=== PATIENT | female | born 1930 | race African-American/Black ===

== ENCOUNTER 2019-01-29 14:02 | Emergency (ER) | payer MEDICARE, BC ==
[~2019-01-29] VITALS: Ht 160 cm; Wt 52.2 kg
[~2019-01-29 14:02] MED LIST: ASPIRIN EC81 MG ORAL; ATENOLOL25 MG ORAL; BENAZEPRIL HCL10 MG ORAL; CLONIDINE HCL0.1 MG PO; DOCUSATE SODIU100 M2 ORAL; FAMOTIDINE10 MG ORAL; HYDRALAZINE HC100 MG PO; IRON325 M1 PO; NEPHROVITE1 TAB ORAL; NIFEDIPINE ER60 M2 ORAL; NIFEDIPINE PO; OMEGA 3 FISH O1 EAC1 PO; PROCRIT2000 UNIT/ SQ; QUETIAPINE FUMA25 MG ORAL; SENSIPAR30 MG ORAL; THIAMINE HCL100 MG ORAL
[2019-01-29] MEDS ORDERED: METOPROLOL TART25 MG ORAL (14:16)
[2019-01-29] MEDS ORDERED: HYDRALAZINE HCL25 M1 ORAL (14:16)
[2019-01-29] MEDS ORDERED: DAILY VITE1 EACH ORAL (14:23)
[2019-01-29] MEDS ORDERED: RENAGEL800 MG ORAL (14:23)
[2019-01-29] MEDS ORDERED: VITAMIN B-1100 MG ORAL (14:23)
[2019-01-29] MEDS ORDERED: VITAMIN D1000 UNI1 ORAL (14:23)
--- NOTE | 2019-01-29 14:25 | NUR ---
ED Nurse Note: Pt came in from home s/p laceration on upper lip, stated she "need something to replace a tetanus shot". Wound about 0.5cm length, clean and dry, no active bleeding, straight edged. Pt cleaned wound with betadine and sterile water. Pt tripped and fell this morning while going for her morning walk. Pt is allergic to Tetanus vaccine, reaction is hives. Pt has dialysis on --, shrunt on L lower arm, did not miss Dialysis. Pt did not hit her head. AOx4, BP 162/72 upon arrival, ERMD aware. Will cont to monitor.
[2019-01-29] MEDS ORDERED: CHLORHEXIDINE473 ML MM (14:33)
--- NOTE | 2019-01-29 14:36 | Emergency Room Report ---
History of Present Illness General Chief Complaint: Multiple Trauma/Fall Present Illness HPI Patient is a 88-year-old female presented after a fall from standing. Patient denies any loss of consciousness. She denies any neck or back pain. Patient reports having gone to dialysis after the fall. She reports sustaining a upper lip laceration. She denies any dental injury. Allergies: Coded Allergies: TETANUS VACCINES & TOXOID (Verified Allergy, Severe, 06/13/13) Patient History Past Medical History: see triage record, renal disease, dialysis Reviewed Nursing Documentation: PMH: Agreed; PSxH: Agreed Nursing Documentation-PMH Hx Cardiac Problems: Yes Hx Hypertension: Yes Hx Cancer: Yes - Lt Breast cancer --> Lt RM & Radiation Tx Hx Gastrointestinal Problems: Yes - GERD Hx Dialysis: Yes - M,W,F Hx Neurological Problems: Yes Hx Dizziness: Yes Review of Systems All Other Systems: negative except mentioned in HPI Physical Exam Vital Signs Date Time Temp Pulse Resp B/P (MAP) Pulse Ox O2 Delivery O2 Flow Rate FiO2 01/29/19 14:11 99.0 78 19 95 Room Air General Appearance: well appearing, no apparent distress, alert, GCS 15 Head: normocephalic, atraumatic ENT: hearing grossly normal, normal voice Neck: full range of motion, supple Respiratory: lungs clear, normal breath sounds, no respiratory distress, speaking full sentences Cardiovascular #1: normal inspection, normal peripheral pulses, regular rate, rhythm, no edema Musculoskeletal: normal inspection Neurologic: normal gait Psychiatric: mood/affect normal Skin: laceration - lip laceration less than 0.5cm Medical Decision Making Diagnostic Impression: Primary Impression: Laceration of lip ER Course Presents with lip laceration. Differential diagnosis include was not limited to head injury, syncope, fracture among others.Patient did have a benign exam. She does not appear to have any evidence of laceration requiring suturing. Patient will be left open. Patient was given prescription for chlorhexidine to rinse her laceration after eating. Patient requested tetanus immunoglobulin however this is not available and I do not think that this is currently indicated. Patient was advised to follow-up with her primary care physician if she desired a second opinion. Last Vital Signs Date Time Temp Pulse Resp B/P (MAP) Pulse Ox O2 Delivery O2 Flow Rate FiO2 01/29/19 14:28 78 19 Room Air 01/29/19 14:11 99.0 95 Status: improved Disposition: HOME, SELF-CARE Condition: Stable Scripts Chlorhexidine Gluconate (CHLORHEXIDINE GLUCONATE) 473 Ml Mouthwash 120 ML MM TWICE A DAY, #120 ML Prov: Gen Valdez MD 01/29/19 Patient Instructions: Nonsutured Laceration Care Additional Instructions: Follow up with your primary care physician for recheck of skin wound. Gen Valdez MD January 29, 2019 14:36
[2019-01-29 14:37] VITALS: BP 157/79
--- NOTE | 2019-01-29 14:37 | NUR ---
ER DISCHARGE NOTE: Patient is cleared to be discharged per ERMD, pt is aox4, on room air, with stable vital signs. pt was given dc and prescription instructions, pt was able to verbalize understanding, pt id band removed. pt is able to ambulate with steady gait. pt took all belongings.
== END 2019-01-29 14:37 | disposition home or self-care (01) ==
LOC: EMR 14:25
DX: S01.511A Laceration without foreign body of lip, initial encounter (principal); W19.XXXA Unspecified fall, initial encounter; Y92.9 Unspecified place or not applicable; I10 Essential (primary) hypertension; Z85.3 Personal history of malignant neoplasm of breast; K21.9 Gastro-esophageal reflux disease without esophagitis; Z88.7 Allergy status to serum and vaccine
CPT/HCPCS: 99281

== ENCOUNTER 2019-06-03 18:34 | Emergency (ER) | payer MEDICARE, BC ==
[~2019-06-03] VITALS: Ht 157.5 cm; Wt 49.9 kg
[~2019-06-03 18:34] MED LIST changes: +CHLORHEXIDINE473 ML MM; +DAILY VITE1 EACH ORAL; +HYDRALAZINE HCL25 M1 ORAL; +METOPROLOL TART25 MG ORAL; +RENAGEL800 MG ORAL; +VITAMIN B-1100 MG ORAL; +VITAMIN D1000 UNI1 ORAL
--- NOTE | 2019-06-03 18:55 | NUR ---
ED Nurse Note: Patient walked in to ER due to fall injury x 1; s/p fall today and sustained injury on the lower lip. No bleeding noted. Patient usually ambulates with cane, but she left it at home today. Patient fell on sidewalk, reports no loss of consciousness. Reports no dizziness or drowsiness prior to fall. Patient takes ASA daily. Patient awake, alert, oriented x 4. Able to follow commands. Reports no headache, N/V or chest pain. Ambulated to the room with steady gait.
[2019-06-03 19:06] VITALS: BP 201/68
--- NOTE | 2019-06-03 19:07 | NUR ---
ED Nurse Note: ERMD made aware of blood pressure 201/68 with HR 71; patient remains asymptomatic.
--- NOTE | 2019-06-03 19:08 | Emergency Room Report ---
History of Present Illness General Chief Complaint: Multiple Trauma/Fall Source: Patient Present Illness HPI 89-year-old female history of hypertension, kidney disease dialysis Friday presents with mechanical fall patient left her cane at home, she fell forward, no LOC, she endorses some chin pain, no neck pain no aggravating or alleviating factors severity is mild, symptoms are intermittent, pain is described as achy. Patient presents for evaluation Allergies: Coded Allergies: TETANUS VACCINES & TOXOID (Verified Allergy, Severe, 06/13/13) Patient History Past Medical History: see triage record Now: No Reviewed Nursing Documentation: PMH: Agreed; PSxH: Agreed Nursing Documentation-PMH Past Medical History: No History, Except For Hx Cardiac Problems: Yes Hx Hypertension: Yes Hx Cancer: Yes - Lt Breast cancer --> Lt RM & Radiation Tx Hx Gastrointestinal Problems: Yes - GERD Hx Dialysis: Yes - M,W,F Hx Neurological Problems: Yes Hx Dizziness: Yes Review of Systems All Other Systems: negative except mentioned in HPI Physical Exam Vital Signs Date Time Temp Pulse Resp B/P (MAP) Pulse Ox O2 Delivery O2 Flow Rate FiO2 06/03/19 18:42 98.4 75 19 205/73 (117) 97 Room Air Sp02 EP Interpretation: reviewed, normal General Appearance: well appearing, no apparent distress, alert Head: normocephalic Eyes: bilateral eye PERRL, bilateral eye EOMI ENT: uvula midline, moist mucus membranes, other - Cut left bottom lip Neck: supple, thyroid normal, no bony tend, supple/symm/no masses Respiratory: lungs clear, no respiratory distress, no retraction, no accessory muscle use Cardiovascular #1: normal peripheral pulses, regular rate, rhythm, no edema, no gallop, no murmur Gastrointestinal: non tender, soft, no guarding, no rebound Musculoskeletal: normal inspection, back normal Neurologic: alert, oriented x3 Psychiatric: mood/affect normal Skin: no rash, warm/dry Medical Decision Making Diagnostic Impression: Primary Impression: Fall Qualified Codes: W19.XXXA - Unspecified fall, initial encounter Additional Impressions: Laceration of lip Qualified Codes: S01.511A - Laceration without foreign body of lip, initial encounter Closed head injury Qualified Codes: S09.90XA - Unspecified injury of head, initial encounter ER Course Patient with close head injury, after mechanical fall will CT scan, Tdap given Patient with no apparent fracture, no head bleed, disposition home with return precautions CT/MRI/US Diagnostic Results CT/MRI/US Diagnostic Results : Impression Preliminary Findings Only See Final Report For Complete Findings CT C SPINE: No acute fracture or traumatic malalignment. Multilevel degenerative changes. Radiologist: Zia Ortega MD Study ready at 19:41 and initial results transmitted at 19:49 *This report constitutes a preliminary interpretation only. Non-acute findings felt to be unrelated to the clinical presentation may not be discussed in this report. The study will be interpreted and a final report will be generated by the local Radiologist the following shift. To reach the hospital radiology department call [phone]. Preliminary Findings Only See Final Report For Complete Findings CT HEAD Without Contrast: Comparison: 06/13/2013 No acute infarct, hemorrhage, mass or edema. Chronic small vessel ischemic disease and senescent changes. Minimal mucosal thickening in the paranasal sinuses. No acute calvarial abnormality. Radiologist: Zia Ortega MD Study ready at 19:41 and initial results transmitted at 19:50 *This report constitutes a preliminary interpretation only. Non-acute findings felt to be unrelated to the clinical presentation may not be discussed in this report. The study will be interpreted and a final report will be generated by the local Radiologist the following shift. To reach the hospital radiology department call [phone]. Preliminary Findings Only See Final Report For Complete Findings CT FACIAL Without Contrast: No acute fracture. Globes and orbits are intact. Minimal mucosal thickening in the paranasal sinuses. Radiologist: Zia Ortega MD Study ready at 19:41 and initial results transmitted at 20:07 Last Vital Signs Date Time Temp Pulse Resp B/P (MAP) Pulse Ox O2 Delivery O2 Flow Rate FiO2 06/03/19 18:42 98.4 75 19 205/73 (117) 97 Room Air Disposition: HOME, SELF-CARE Condition: Stable Referrals: NON PHYSICIAN (PCP) [facility] Patient Instructions: Fall Prevention in the Home, [id number], Head Injury, Adult, [id number] Additional Instructions: The patient was provided with discharge instructions, notified to follow-up with a primary care doctor and or specialist in the next 24-48 hours, and to return to the ED if they have worsening of their symptoms. Please note that this report is being documented using [employer] technology. This can lead to erroneous entry secondary to incorrect interpretation by the dictating instrument. Cb Rodríguez MD Jun 03, 2019 19:08
[2019-06-03] MEDS ORDERED: SENSIPAR30 MG ORAL (19:13)
[2019-06-03] MEDS ORDERED: DIALYVITE 3,001 EACH PO (19:13)
[2019-06-03] MEDS ORDERED: AMLODIPINE BESY10 MG ORAL (19:13)
[2019-06-03] MEDS ORDERED: VITAMIN C500 M1 ORAL (19:13)
[2019-06-03] MEDS ORDERED: Acetaminophen 500mg (ES) tab ORAL ONE (19:15)
[2019-06-03] MEDS ORDERED: Tetanus/Diptheria/Pertussis IM ONE (19:15)
[2019-06-03] MEDS ORDERED: LORazepam 1mg tab ORAL ONE (19:15)
--- NOTE | 2019-06-03 19:19 | NUR ---
HAND-OFF: Report given to GABRIELA Krueger. Patient in CT scan room. Endorsed med administration to GABRIELA Lamb.
--- NOTE | 2019-06-03 19:50 | Diagnostic Imaging Report ---
Indication: Headache Technique: Contiguous 5 mm thick transaxial imaging of the head obtained in a Siemens Sensation [address] scanner. Soft tissue and bone windows generated. Automatic Exposure Control was utilized. Total Dose length Product (DLP): 2139.[address] Dose Index Volume (CTDIvol): 70.38,28.19,9.65 mGy Comparison: none Findings: There is moderate prominence of the ventricles, basal cisterns, and cerebral sulci consistent with atrophy. Moderate, nonspecific, white matter hypoattenuation is noted throughout the brain consistent with chronic small vessel disease. There is no midline shift, edema, acute hemorrhage, mass effect, or abnormal extra-axial fluid collections. Bones are unremarkable. Impression: No acute intracranial bleed, mass effect or edema. Moderate atrophy of the brain. Evidence of chronic small vessel disease involving white matter tracts. [facility] has communicated the preliminary results to the Emergency Department. Their findings are largely concordant with this report. The CT scanner at [facility] is accredited by the [employer] and the scans are performed using dose optimization techniques as appropriate to a performed exam including Automatic Exposure control.
--- NOTE | 2019-06-03 19:50 | Diagnostic Imaging Report ---
Indication: Cervical trauma/pain. Technique: Continuous helical imaging of the cervical spine was obtained transaxially from the skull base to the upper thoracic spine. 2-D coronal and sagittal reformatted images were obtained. Automatic Exposure Control was utilized. Total Dose length Product (DLP): 2139.[address] Dose Index Volume (CTDIvol): 70.38,28.19,9.65 mGy Comparison: None Findings: There is no acute fracture or malalignment identified. There is no soft tissue swelling identified. There is loss of cervical lordosis which may be due to muscle spasm. 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 The intervertebral discs show narrowing and osteophytes. The bones are diffusely osteopenic. There is a moderate degree of calcification of the discs. There is also calcification that is the soft tissue in nature involving the posterior longitudinal ligament to some extent as well as the annulus of the discs particularly at the the C1-2 level where there is a small pannus. Impression: No acute injury Moderate spondylosis and degenerative changes as described above. [facility] has communicated the preliminary results to the Emergency Department. Their findings are largely concordant with this report. The CT scanner at [facility] is accredited by the [employer] and the scans are performed using dose optimization techniques as appropriate to a performed exam including Automatic Exposure control.
--- NOTE | 2019-06-03 20:08 | Diagnostic Imaging Report ---
Indication: Orbital and maxillofacial trauma and pain Technique: Continuous helical transaxial imaging of the orbits/maxillofacial structures obtained without intravenous contrast administration. Coronal 2-D reformats were also obtained. Study obtained in a Siemens sensation [address] Automatic Exposure Control was utilized. Total Dose length Product (DLP): 2139.[address] Dose Index Volume (CTDIvol): 70.38,28.19,9.65 mGy Comparison: None Findings: There is no evidence of an acute fracture. Paranasal sinuses and mastoids are clear. Soft tissues are unremarkable. Degenerative changes of the cervical spine demonstrated as visualized with the endplate and uncovertebral spur formation. There is calcification of the extracranial portions of the carotid arteries within the neck. Extensive dental fillings and other metallic artifacts emanating from the mandible noted. IMPRESSION: No acute injury identified. [facility] has communicated the preliminary results to the Emergency Department. Their findings are largely concordant with this report. The CT scanner at [facility] is accredited by the [employer] and the scans are performed using dose optimization techniques as appropriate to a performed exam including Automatic Exposure control.
[2019-06-03 20:50] VITALS: BP 138/62
--- NOTE | 2019-06-03 20:50 | NUR ---
ER Nurse Note: Pt seen, treated, medically cleared for discharge by ER MD. Discharge instuctions given with repeat verbalization by pt. Emphasized to follow up with primay care provider. All orders completed per ERMD orders. Pt a&ox4, VSS, no signs of distress. ID band removed. Fran gambino applied by security systems technician. Cap refill less than 3 sec. Cane provided. All questions answered per pt's questions. Pt left with all belongings, left with own transportation.
--- NOTE | 2019-06-04 11:09 | Diagnostic Imaging Report ---
Indication: left hand pain. Comparison: None Findings: 3 views of the left hand were obtained. The bones are osteopenic. There is no acute fracture or malalignment concerning for acute injury. 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 IMPRESSION: No acute injury identified
== END 2019-06-03 20:50 | disposition home or self-care (01) ==
LOC: EMR 18:55
DX: S09.90XA Unspecified injury of head, initial encounter (principal); S01.511A Laceration without foreign body of lip, initial encounter; S69.92XA Unspecified injury of left wrist, hand and finger(s), initial encounter; Z23 Encounter for immunization; K21.9 Gastro-esophageal reflux disease without esophagitis; Z85.3 Personal history of malignant neoplasm of breast; I12.0 Hypertensive chronic kidney disease with stage 5 chronic kidney disease or end stage renal disease; N18.6 End stage renal disease; Z99.2 Dependence on renal dialysis; W01.0XXA Fall on same level from slipping, tripping and stumbling without subsequent striking against object, initial encounter; Y92.9 Unspecified place or not applicable
CPT/HCPCS: 29130; 70450; 70486; 72125; 90471; 90715; 99284